=== PATIENT | female | born 1970 | race Caucasian/White ===

== ENCOUNTER 2022-03-06 14:19 | Outpatient (CLI) | payer MEDICAID, SELFPAY ==
--- NOTE | ~2022-03-06 | XR_ITS ---
EXAMINATION: XR chest 2V Exam Date/Time: 03/06/2022 14:55 CDT HISTORY: ASTHMA Comparison: None available. RESULT: Lines, tubes, and devices: Axillary clips. Lungs and pleura: Clear. Cardiomediastinal silhouette: Unremarkable. Other: No acute osseous or upper abdominal finding. IMPRESSION: No acute cardiopulmonary process. Reviewed, dictated and finalized at location K.
[2022-03-06 14:46] LABS: Basophils Absolute Auto 0.05 K/mm3 (0.00-0.10); Basophils Percent Auto 0.4 % (0.0-1.0); Eosinophils Absolute Auto 0.32 K/mm3 (0.02-0.50); Eosinophils Percent Auto 2.7 % (1.0-6.0); Hematocrit 43.8 % (35.0-49.0); Hemoglobin 15.3 g/dL (12.0-15.0); Immature Granulocyte Absolute 0.05 K/mm3 (0.00-0.00); Immature Granulocyte Percent A 0.4 % (0.0-0.0); Lymphocytes Absolute Auto 3.09 K/mm3 (1.10-4.50); Lymphocytes Percent Auto 25.7 % (18.0-42.0); Mean Corpuscular HGB Conc 34.9 g/dL (32.0-36.0); Mean Corpuscular Hemoglobin 33.3 pg (27.0-31.0); Mean Corpuscular Volume 95.4 fL (78.0-102.0); Mean Platelet Volume 11.1 fl (9.2-11.8); Monocytes Absolute Auto 1.08 K/mm3 (0.10-0.90); Neutrophils Absolute Auto 7.5 K/mm3 (1.7-7.2); Neutrophils Percent Auto 61.8 % (50.0-70.0); Platelet Count Result 296 K/mm3 (150-420); Red Blood Count 4.59 M/mm3 (4.20-5.40); Red Cell Distribution Width 13.7 % (11.6-14.4)
[2022-03-06 14:53] LABS: Appearance Urine Clear (Clear); Bilirubin Urine Negative (Negative); Color Urine Light Yellow (Yellow); Glucose Urine UA Negative (Negative); Ketones Urine Negative (Negative); Leukocyte Esterase Ur Negative LEU/UL (Negative); Nitrate Urine Negative (Negative); Protein Urine Negative (Negative); Specific Grav Ur <= 1.005 (1.010-1.020); Urobilinogen Urine 0.2 mg/dL (0.2-1.0)
[2022-03-06 15:05] LABS: Add Urine Microscopic? YES; Bacteria Urine 1+ /hpf; Blood Urine Trace-lysed (Negative); RBC Urine 0-2 /hpf (0-2); Squamous Epithelial Cell Urine Few /hpf (Few); WBC Urine None seen /hpf (0-3)
[2022-03-06 15:28] LABS: Alanine Aminotransferase 32 U/L (14-59); Albumin Level 3.8 g/dL (3.4-5.0); Alkaline Phosphatase 82 U/L (46-116); Anion Gap 8 mmol/L (8-16); Aspartate Amino Transferase 25 U/L (15-37); Bilirubin,Total 0.4 mg/dL (0.00-1.00); Blood Urea Nitrogen 9 mg/dL (7-18); CRP 0.8 mg/dL (0.0-0.9); Calcium 9.3 mg/dL (8.5-10.1); Carbon Dioxide 27 mmol/L (21-32); Chloride 103 mmol/L (98-108); Estimated Glomerular Filt Rate > 60; Glucose 99 mg/dL (70-99); Osmolality Calculated 284 mOsm/kg (285-295); Potassium 4.4 mmol/L (3.5-5.1); Sodium 138 mmol/L (136-145); Thyroid Stimulating Hormone 0.89 uIU/mL (0.36-3.74); Total Protein 7.1 g/dL (6.4-8.2)
== END 2022-03-06 14:20 | disposition home or self-care (01) ==
PROVIDERS: PCP Internal Medicine; Visit Provider Internal Medicine
DX: M54.9 Dorsalgia, unspecified (principal); M54.17 Radiculopathy, lumbosacral region; J45.909 Unspecified asthma, uncomplicated
CPT/HCPCS: 36415; 71046; 80053; 81001; 84443; 85025; 86140

== ENCOUNTER 2022-03-11 14:52 | Outpatient (RCR) | payer MEDICAID, OTHER, SELFPAY ==
--- NOTE | 2022-03-12 11:40 | BUPTOPEVAL1 ---
Assessment and note entered by Ghazala Astorga DPT Evaluation Information Assessment Status Evaluation Diagnosis Back pain with R leg radiculopathy Onset 01/21/2022 Subjective Information Pt reports insidious flare up of back pain. Pt has had back pain in the past and has past history of surgery in her her lower lumbar region about 20 years ago. Pt received CT scan which showed severe L3-L4 stenosis . Pt reported that pain would occasionally flare up but not nearly this bad. She would receive a cortisone shot and her pain would be good for years. Pain now takes breath away. Sitting generally feels okay, feels okay lying on L side. Gets most pain with walking, standing. Pain radiates along leg to lateral portion of foot. She gets paresthesias on her knee below, but denies weakness. Sleeping has been affected as she has a hard time going to sleep and staying asleep. She notes that when sitting she leans most of her weight onto her L LE. Pt reports she had a UTI that was on 02/21, and as far as bowel function, she reports increased diarrhea since her injury. MD prescribed a muscle relaxer and anti-inflammatory that seem to take the edge off, however, she is more sore today. She helps to take care of her [id number]. Pt has an appointment scheduled with a neurosurgeon on Friday, 03/18. Reported Pain Level Pain Score 2: Self Report Assessment PT Clinical Summary Pt presents to physical therapy with low back pain and R LE radicular symptoms and she demonstrates decreased mobility, decreased strength, and antalgic gait. 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 She was provided with an HEP focused on improving neurodynamic tension and mobility of her back within tolerance. She will benefit from skilled PT to facilitate symptom relief, improve the aforementioned impairments, and return to functional and recreational activities. Plan of Care Interventions Electrical Stimulation,Gait Training,Hot Pack/Cold Pack,Manual Therapy,Mechanical Traction,Neuro Re- education,Patient/Caregiver Educati,Therapeutic Activities,Therapeutic Exercise PT Services Indicated Yes Treatment Frequency and 2x
--- NOTE | 2022-04-12 16:31 | PTOPDC ---
Assessment and note entered by Ghazala Astorga DPT Evaluation Information Assessment Status Discharge Diagnosis Back pain with R leg radiculopathy Onset 01/21/2022 Subjective Information Pt reports that she continues to have no pain in her back. Although she still has weird sensations in her legs, she reports that they are not too bothersome and they do not impede her from her activities. She feels that she has learned a lot through PT and feels that the mix of PT and medicine has really helped her to feel more normal again. Reported Pain Level Pain Score 0: Self Report Assessment PT Clinical Summary Pt presents to physical therapy with significant improvements in back pain, lumbar ROM and mobility , strength, and gait pattern since her initial evaluation. Due to significant improvements in quality of life and performance with functional and recreational activities, she is to be discharged from skilled PT at this time. She is to follow-up with her referring MD or our clinic should her symptoms change. Plan of Care PT Services Indicated No
== END 2022-04-12 16:56 | disposition home or self-care (01) ==
LOC: CHSPT 14:52
PROVIDERS: PCP Internal Medicine; Visit Provider Internal Medicine
DX: M54.9 Dorsalgia, unspecified (principal); M54.10 Radiculopathy, site unspecified
CPT/HCPCS: 97110; 97161

== ENCOUNTER 2022-03-30 07:46 | Outpatient (CLI) | payer OTHER, SELFPAY ==
--- NOTE | ~2022-03-30 | MR_ITS ---
EXAMINATION: MR lumbar spine wo con DATE: 03/30/2022 09:14 INDICATION: lumbar radiculopathy . TECHNIQUE: Magnetic resonance imaging (MRI) of the lumbar spine was performed without intravenous con trast. Sequences included sagittal T2-weighted FSE, sagittal T2-weighted FS FSE, sagittal T1-weighted FSE, and axial T2-weighted FSE. COMPARISON: None FINDINGS: The last fully formed and hydrated disc is designated L5-S1. No suspicious focal or diffuse marrow signal. Conus terminates at L2. Disc height loss and dehydration at multiple levels, most sev ere at L5-S1 where there is interbody fusion. Incidental note of simple left renal cysts. The followi ng disc levels are specifically discussed: T11-T12: Mild diffuse bulge with a superimposed 5 mm left foraminal protrusion. There is no facet srini nt osteoarthritis. There is no right and mild left neural foraminal stenosis. There is no central can al stenosis. T12-L1: The disc does not extend beyond the endplate margin. There is mild facet joint osteoarthritis . There is no neural foraminal stenosis. There is no central canal stenosis. L1-L2: Moderate diffuse bulge. There is mild facet joint osteoarthritis. There is mild bilateral infe rior neural foraminal stenosis. There is no central canal stenosis. L2-L3: The disc does not extend beyond the endplate margin. There is moderate facet joint osteoarthri tis. There is no neural foraminal stenosis. There is no central canal stenosis. L3-L4: Moderate diffuse bulge. There is moderate facet joint osteoarthritis. There is no neural letty inal stenosis. There is no central canal stenosis. L4-L5: Moderate diffuse bulge. There is moderate facet joint osteoarthritis. There is mild bilateral inferior neural foraminal stenosis. There is mild central canal stenosis. L5-S1: 5 mm right paracentral protrusion. There is moderate facet joint osteoarthritis. There is mode rate bilateral neural foraminal stenosis. There is no central canal stenosis. IMPRESSION: 1. Severe degenerative disc disease at L5-S1. 2. Moderate bilateral neural foraminal narrowing at L5-S1. 3. Multilevel moderate facet arthropathy. Reviewed, dictated and finalized at location K.
== END 2022-03-30 07:47 | disposition home or self-care (01) ==
LOC: CHSIMG 07:48
PROVIDERS: PCP Internal Medicine
DX: M54.16 Radiculopathy, lumbar region (principal)
CPT/HCPCS: 72148

== ENCOUNTER 2022-04-26 14:50 | Outpatient (CLI) | payer OTHER, SELFPAY ==
--- NOTE | ~2022-04-26 | XR_ITS ---
XR hip RT min 2V DATE: 04/26/2022 15:18 INDICATION: Lateral right hip pain for 2 years TECHNIQUE: AP and lateral views COMPARISON: None FINDINGS: No fracture, dislocation, avascular necrosis or bone destruction of the right hip. Right hi p joint space appears well preserved. The pubic symphysis and sacroiliac joints are intact, with mild degenerative change. IMPRESSION: No significant abnormality of right hip Reviewed, dictated and finalized at location A.
== END 2022-04-26 14:51 | disposition home or self-care (01) ==
LOC: CHSIMG 14:52
PROVIDERS: PCP Internal Medicine; Visit Provider Internal Medicine
DX: M25.551 Pain in right hip (principal)
CPT/HCPCS: 73502

== ENCOUNTER 2022-08-16 08:09 | Outpatient (CLI) | payer OTHER, SELFPAY ==
--- NOTE | ~2022-08-16 | US_ITS ---
Limited Abdominal Sonogram: Real-time sonographic imaging of the right upper quadrant was performed. Clinical History: Dyspepsia Findings: The liver appears echogenic, with no evidence of mass lesion or bile duct dilatation. Main portal vein demonstrates normal direction of flow. The gallbladder is well distended, and appears no rmal with no evidence of gallstone or wall thickening. The common bile duct measures 4 mm. The visua lized pancreas, aorta, and IVC are unremarkable. Impression: Diffuse fatty infiltration of liver. Reviewed, dictated and finalized at location M. PAN MIXER Impression: Diffuse fatty infiltration of liver.
== END 2022-08-16 08:10 | disposition home or self-care (01) ==
LOC: CHSIMG 08:11
PROVIDERS: PCP Internal Medicine; Visit Provider Internal Medicine
DX: R10.13 Epigastric pain (principal); K76.0 Fatty (change of) liver, not elsewhere classified
CPT/HCPCS: 76705

== ENCOUNTER 2023-06-06 11:03 | Outpatient (CLI) | payer OTHER, SELFPAY ==
--- NOTE | ~2023-06-06 | XR_ITS ---
Cervical Spine: AP, lateral, open-mouth views Clinical History: Pain Findings: There is mild reversal normal cervical lordosis. No fracture or subluxation. There is mild degenerative disc narrowing at C4-C5. Pre-vertebral soft tissues are unremarkable. Impression: Minimal degenerative change, as above. Reviewed, dictated and finalized at [facility]. ATIONAL TRAINER Impression: Minimal degenerative change, as above.
[2023-06-06 11:50] LABS: Alanine Aminotransferase 38 U/L (14-59); Albumin Level 3.8 g/dL (3.4-5.0); Alkaline Phosphatase 94 U/L (46-116); Anion Gap 5 mmol/L (8-16); Aspartate Amino Transferase 25 U/L (15-37); Bilirubin,Total 0.5 mg/dL (0.00-1.00); Blood Urea Nitrogen 7 mg/dL (7-18); Carbon Dioxide 32 mmol/L (21-32); Chloride 102 mmol/L (98-108); Cholesterol 240 mg/dL (0-200); Creatine Kinase 100 U/L (26-192); Estimated Glomerular Filt Rate > 60; Glucose 118 mg/dL (70-99); HDL Direct 42 mg/dL (40-60); LDL Cholesterol Calculated 135 mg/dL (<130); Osmolality Calculated 287 mOsm/kg (285-295); Sodium 139 mmol/L (136-145); Total Protein 7.3 g/dL (6.4-8.2); Triglycerides 314 mg/dL (0-150)
[2023-06-06 16:29] LABS: Hemoglobin A1C 6.4 % (<5.7)
== END 2023-06-06 11:04 | disposition home or self-care (01) ==
LOC: CHSLAB 11:05
PROVIDERS: PCP Internal Medicine; Visit Provider Internal Medicine
DX: M54.2 Cervicalgia (principal); E78.5 Hyperlipidemia, unspecified; R73.9 Hyperglycemia, unspecified
CPT/HCPCS: 36415; 72040; 80053; 80061; 82550; 83036